=== PATIENT | female | born 1980 | race Caucasian/White ===

== ENCOUNTER 2022-02-02 10:41 | Outpatient (CLI) | payer OTHER, SELFPAY ==
[2022-02-02 14:07] LABS: Basophils Absolute Auto 0.09 K/uL (0.00-0.30); Basophils Percent Auto 1.6 % (0.0-3.0); Eosinophils Absolute Auto 0.21 K/uL (0.00-0.50); Eosinophils Percent Auto 3.8 % (0.0-7.0); Hematocrit 35.1 % (33.0-51.0); Hemoglobin* 10.4 gm/dL (12.0-16.0); Immature Granulocytes Abs Auto 0.02 K/uL (0.00-0.30); Lymphocytes Percent Auto 14.8 % (20-44); Mean Corpuscular HGB Conc 30 gm/dL (32-36); Mean Corpuscular Hemoglobin 25 pg (26-34); Mean Corpuscular Volume 85 fL (80-100); Monocytes Percent Auto 13.5 % (0.0-11.0); Neutrophils Absolute Auto 3.61 K/uL (1.7-7.0); Neutrophils Percent Auto 65.9 % (42.0-72.0); Platelet Count* 175 K/uL (140-440); RDW Coefficient of Variation % 18.2 % (11.5-15.5); Red Blood Count 4.11 m/uL (4.00-5.20); White Blood Count* 5.48 K/uL (4.50-11.00)
[2022-02-02 14:08] LABS: Slide Review Reflex No
[2022-02-02 14:22] LABS: Albumin* 4.4 g/dL (3.3-5.0); Chloride* 100 mmol/L (96-114); Potassium* 4.3 mmol/L (3.6-5.1); Sodium* 137 mmol/L (135-149)
[2022-02-02 14:24] LABS: Aspartate Amino Transferase* 163 U/L (12-35); Bilirubin Total* 0.5 mg/dL (0.1-1.5); Carbon Dioxide* 28 mmol/L (20-32); Creatinine* 0.6 mg/dL (0.5-1.5); Estimated Glomerular Filt Rate 116 ml/min
[2022-02-02 14:25] LABS: Alanine Aminotransferase* 137 U/L (4-35); Alkaline Phosphatase* 146 U/L (40-150); Blood Urea Nitrogen* 13 mg/dL (5-24); Calcium* 9.1 mg/dL (8.4-10.6); Glucose* 110 mg/dL (60-115); Total Protein* 7.3 g/dL (6.0-8.3)
== END 2022-02-02 10:42 | disposition home or self-care (01) ==
LOC: FBOREF 10:42
PROVIDERS: Visit Provider Family Medicine
DX: F10.10 Alcohol abuse, uncomplicated (principal)
CPT/HCPCS: 80053; 85025

== ENCOUNTER 2022-04-12 10:55 | Outpatient (CLI) | payer OTHER, SELFPAY ==
[2022-04-12 14:04] LABS: Basophils Percent Auto 1.9 % (0.0-3.0); Eosinophils Absolute Auto 0.15 K/uL (0.00-0.50); Eosinophils Percent Auto 2.9 % (0.0-7.0); Hematocrit 34.4 % (33.0-51.0); Hemoglobin* 10.4 gm/dL (12.0-16.0); Immature Granulocytes Abs Auto 0.02 K/uL (0.00-0.30); Immature Granulocytes Pct Auto 0.4 %; Lymphocytes Percent Auto 12.7 % (20-44); Mean Corpuscular HGB Conc 30 gm/dL (32-36); Mean Corpuscular Hemoglobin 26 pg (26-34); Mean Corpuscular Volume 85 fL (80-100); Monocytes Percent Auto 13.5 % (0.0-11.0); Neutrophils Absolute Auto 3.57 K/uL (1.7-7.0); Neutrophils Percent Auto 68.6 % (42.0-72.0); Platelet Count* 184 K/uL (140-440); RDW Coefficient of Variation % 17.6 % (11.5-15.5); Red Blood Count 4.05 m/uL (4.00-5.20)
[2022-04-12 14:09] LABS: Slide Review Reflex No
[2022-04-12 14:32] LABS: Albumin* 4.6 g/dL (3.3-5.0); Chloride* 100 mmol/L (96-114); Sodium* 136 mmol/L (135-149)
[2022-04-12 14:33] LABS: Potassium* 4.2 mmol/L (3.6-5.1)
[2022-04-12 14:35] LABS: Alanine Aminotransferase* 90 U/L (4-35); Alkaline Phosphatase* 126 U/L (40-150); Aspartate Amino Transferase* 103 U/L (12-35); Bilirubin Direct* 0.3 mg/dL (0.0-0.5); Bilirubin Total* 0.5 mg/dL (0.1-1.5); Blood Urea Nitrogen* 14 mg/dL (5-24); Carbon Dioxide* 28 mmol/L (20-32); Creatinine* 0.5 mg/dL (0.5-1.5); Estimated Glomerular Filt Rate 120 ml/min; Glucose* 104 mg/dL (60-115); Total Protein* 7.3 g/dL (6.0-8.3)
[2022-04-12 14:36] LABS: Calcium* 9.5 mg/dL (8.4-10.6)
== END 2022-04-12 10:56 | disposition home or self-care (01) ==
PROVIDERS: PCP Family Medicine; Visit Provider Family Medicine
DX: Z01.818 Encounter for other preprocedural examination (principal); I10 Essential (primary) hypertension; F10.10 Alcohol abuse, uncomplicated
CPT/HCPCS: 80048; 80076; 85025

== ENCOUNTER 2022-09-06 11:44 | Outpatient (CLI) | payer OTHER, SELFPAY | END 2022-09-06 11:45 | disposition home or self-care (01) | PROVIDERS: PCP Family Medicine; Visit Provider Family Medicine | DX: I10 Essential (primary) hypertension (principal); F10.10 Alcohol abuse, uncomplicated; I63.541 Cerebral infarction due to unspecified occlusion or stenosis of right cerebellar artery | CPT/HCPCS: 80048; 80061; 80076; 85025 ==

== ENCOUNTER 2023-09-22 10:40 | Outpatient (CLI) | payer OTHER, SELFPAY | END 2023-09-22 10:41 | disposition home or self-care (01) | LOC: NFLDREF 09-23 08:25 | PROVIDERS: PCP Family Medicine; Referring Provider Family Medicine; Visit Provider Family Medicine | DX: N39.0 Urinary tract infection, site not specified (principal) | CPT/HCPCS: 81001; 87086; 87186 ==

== ENCOUNTER 2023-10-03 13:39 | Outpatient (CLI) | payer OTHER, SELFPAY | END 2023-10-03 13:40 | disposition home or self-care (01) | PROVIDERS: PCP Family Medicine; Visit Provider Family Medicine | DX: I10 Essential (primary) hypertension (principal); F10.10 Alcohol abuse, uncomplicated; D62 Acute posthemorrhagic anemia; Z13.220 Encounter for screening for lipoid disorders | CPT/HCPCS: 80048; 80061; 80076; 85025 ==

== ENCOUNTER 2024-07-30 13:54 | Outpatient (CLI) | payer OTHER, SELFPAY ==
--- NOTE | 2024-07-30 14:00 | CRLHL7_ITS ---
For Patients: As a result of the Century Cures Act, medical imaging exams and procedure reports are released immediately into your electronic medical record. You may view this report before your referring provider. If you have questions, please contact your health care provider. BILATERAL SCREENING MAMMOGRAM WITH COMPUTER-AIDED DETECTION AND TOMOSYNTHESIS TECHNIQUE: CC and MLO views were obtained. These mammographic images have been obtained using full-field digital technique. These mammographic images were interpreted with the benefit of computer-aided detection. Breast Tomosynthesis was used in this interpretation. COMPARISON FILM: 11/27/20. FINDINGS: The breasts are heterogeneously dense, which may obscure small masses IMPRESSION: There is no radiographic evidence for malignancy. ASSESSMENT: BI-RADS Category 1: Negative RECOMMENDATION: Routine screening mammogram in 1 year. A lay language report of this examination will be provided to the patient. Santos Connell M.D. Diagnostic Radiologist [email or web address] Transcribed: 4:20 p.[email or web address] martins/[email or web address] by: Santos Connell MD @ 07/31/2024 8:45:00 AM (Electronically Signed)
== END 2024-07-30 13:55 | disposition home or self-care (01) ==
LOC: MAMMO 13:54
PROVIDERS: PCP Family Medicine; Visit Provider Family Medicine
DX: Z12.31 Encounter for screening mammogram for malignant neoplasm of breast (principal); R92.333 Mammographic heterogeneous density, bilateral breasts
CPT/HCPCS: 77063; 77067